=== PATIENT | female | born 1985 | race Caucasian/White ===

== ENCOUNTER → 2016-09-01 | Outpatient (CLI) | payer MEDICAID | LOC: FIMAGING 16:43 | PROVIDERS: ATTEND Family Medicine | DX: Z53.8 Procedure and treatment not carried out for other reasons (principal) ==

== ENCOUNTER 2016-09-08 13:32 | Outpatient (CLI) | payer MEDICAID ==
[2016-09-08] MEDS ORDERED: PROPOFOL/EMULSION 500 MG/50 ML BOTTLE IV ONE (15:02)
[2016-09-08] MEDS ORDERED: IOPAMIDOL (ISOVUE-300) 100 ML BTL IV ONE (15:04)
[2016-09-08] MEDS ORDERED: MIDAZOLAM 2 MG/2 ML VIAL ONE (15:25)
[2016-09-08] MEDS ORDERED: FAMOTIDINE 20 MG/2 ML SDV ONE (15:50)
--- NOTE | 2016-09-08 17:39 | CT ---
CT of the Facial Bones with contrast 1558 hours History: Chronic left jaw pain. Rule out infection or abscess of the mandible. Abnormality seen on o utside dental x-ray study. Technique: Thin spiral images were obtained through the face from just below the mandible to above th e frontal sinuses with the administration of 90 mL Isovue-300 IV contrast.. The data were reconstruct ed in the sagittal and coronal plane. I also performed 3D reconstructions at the workstation to help the physician and surgeon visualize osseous detail if surgery is contemplated. Curved multiplanar re format was also performed of the mandible. Dose reduction techniques were utilized. Comparison to prior CT facial bone study from May 08, 2008. Findings: Patient has had interval extraction of the wisdom teeth. In the region of the left wisdom t ooth extraction there has been development of a well-circumscribed area of sclerosis. There is subtle lobulated erosion of the inner cortex surrounding this sclerosis within the angle of the mandible on the left. This could be related to previous wisdom tooth extraction as the roots of the wisdom tooth in this location extended into this region of the mandible on the previous study. The remainder of t he mandible as well as maxillary ridge are normal in appearance. No additional sclerosis or erosions are seen. The roots of the remaining teeth are normal in appearance without lucency or erosion. There is no evidence of soft tissue swelling or abscess in the soft tissues of the neck with attentio n to the left side of the jaw posteriorly. The facial bones are intact without evidence of fracture. There is mild mucosal thickening right maxi llary sinus. The remainder of the paranasal sinuses are clear. There is fluid within the mastoid sinu ses bilaterally. There is also fluid around the ossicles within the middle ear bilaterally. The exter nal auditory canal appears to be patent bilaterally except for some earwax bilaterally. The orbital g lobes are normal in contour. Soft tissues demonstrate no significant abnormality. The cerebral parenchyma is stable in appearance. 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 No new intracranial mass or enhancing lesions are seen. Impression: 1. Well-circumscribed sclerotic lesion left mandibular ramus with surrounding subtle erosion and scal loping of the inner cortex of the mandible on the left and mild expansion. Findings are suspicious fo r chronic osteomyelitis or burned-out osteomyelitis as there is no lucent sequestrum seen at this griselda e. Bony sclerosis and reaction secondary to retained root from previous wisdom tooth extraction may b e considered. 2. Mild left maxillary sinus disease. 3. Bilateral mastoiditis with otitis media suspected bilaterally. This may also be a chronic process. 4. Absence of the septum pellucidum. No new intracranial abnormality.
[2016-09-08] MEDS ORDERED: NS 1,000 ML IV SCH (18:15)
== END 2016-09-08 17:30 | disposition home or self-care (01) ==
LOC: FIMAGING 13:32
PROVIDERS: ATTEND Otolaryngology
DX: R93.8 Abnormal findings on diagnostic imaging of other specified body structures (principal); R68.84 Jaw pain; J32.0 Chronic maxillary sinusitis
CPT/HCPCS: J2250; J2704; Q9967